=== PATIENT | male | born 1955 | race Caucasian/White ===

== ENCOUNTER 2018-07-27 06:58 | Inpatient (IN) ==
[2018-07-20 16:05] LABS: Basophils # 0.1 10*3/uL (0.0-0.2); Basophils % 1.1 % (0.0-0.8); Eosinophils # 0.1 10*3/uL (0.0-0.87); Eosinophils % 1.9 % (0.00-10.9); Hematocrit 46.7 VOL% (42.0-52.0); Hemoglobin 16.3 GM/DL (14.0-18.0); Immature Granulocytes % 0.4 %; Immature Granulocytes Absolute 0.02 #; Lymphocytes # 1.3 10*3/uL (1.4-4.0); Lymphocytes % 26.7 % (21.2-54.2); Mean Corpuscular HGB Conc 34.9 GM/DL (32-36); Mean Corpuscular Hemoglobin 31 PG (27-34); Mean Corpuscular Volume 88.4 FL (87-102); Mean Platelet Volume 10.6 FL (9.6-12.0); Monocytes # 0.5 10*3/uL (0.11-0.8); Monocytes % 9.7 % (1.7-12.7); Neutrophils # 2.8 10*3/uL (1.4-7.4); Neutrophils % 60.2 % (38.7-73.9); Platelet Count 153 T/CUMM (130-400); Red Blood Count 5.28 MC/CUMM (3.8-5.5); Red Cell Distribution Width 13.1 % (9.3-17.3); White Blood Count 4.7 T/CUMM (4-12)
[2018-07-20 16:28] LABS: Calcium 9.3 MG/DL (8.5-10.1); Osmolality,Calculated 280.3 MOS/KG (273-304); Potassium 4.2 MMOL/L (3.5-5.1)
[2018-07-27] MEDS: LACTATED RINGERS 1,000 ML IV SCH ×4 (07:39→17:01)
[2018-07-27] MEDS ORDERED: PANTOPRAZOLE 40 MG TABLET PO ONE (08:59)
[2018-07-27] MEDS ORDERED: DIAZEPAM 5 MG TABLET PO ONE (08:59)
[2018-07-27] MEDS ORDERED: LIDOCAINE 1%/EPI INJ 20 ML VIAL ONE (09:40)
[2018-07-27] MEDS ORDERED: BUPIVACAINE MPF 0.25% /EPI 30 ML VIAL ONE (09:40)
[2018-07-27] MEDS ORDERED: ROPIVACAINE 0.5% 30 ML VIAL ONE (09:55)
[2018-07-27] MEDS ORDERED: ONDANSETRON 4 MG/2 ML VIAL IV PRN ×2 (12:21→12:50)
[2018-07-27] MEDS ORDERED: GLUCAGON 1 MG VIAL IM PRN (12:23)
[2018-07-27] MEDS ORDERED: DEXTROSE 50% 25 GM/50 ML VIAL IV PRN (12:23)
[2018-07-27] MEDS ORDERED: MEPERIDINE 25 MG/1 ML VIAL ONE (12:50)
[2018-07-27] MEDS ORDERED: HYDROmorphone 2 MG/1 ML VIAL IV PRN (12:50)
[2018-07-27] MEDS ORDERED: MEPERIDINE 25 MG/1 ML VIAL IV PRN (12:50)
[2018-07-27] MEDS ORDERED: hydrALAZINE 20 MG/1 ML VIAL IV ONE (13:03)
[2018-07-27] MEDS ORDERED: PROPOFOL 200 MG/20 ML VIAL IV ONE (13:25)
[2018-07-27] MEDS ORDERED: ROCURONIUM 100 MG/10 ML VIAL IV ONE (13:26)
[2018-07-27] MEDS ORDERED: SEVOFLURANE 1 UNIT/15 MINUTE INH ONE (13:26)
[2018-07-27] MEDS ORDERED: ONDANSETRON 4 MG/2 ML VIAL ONE (13:26)
[2018-07-27] MEDS ORDERED: fentaNYL 100 MCG/2 ML VIAL ONE (13:26)
[2018-07-27] MEDS ORDERED: MIDAZOLAM 2 MG/2 ML VIAL ONE (13:27)
[2018-07-27] MEDS ORDERED: GLYCOPYRROLATE 0.4 MG/2 ML VIAL ONE (13:27)
[2018-07-27] MEDS ORDERED: NEOSTIGMINE 10 MG/10 ML VIAL ONE (13:28)
[2018-07-27] MEDS ORDERED: SODIUM CHLORIDE 0.9% 250 ML IV ONE (13:28)
[2018-07-27] MEDS ORDERED: PHENYLEPHRINE 10 MG/1 ML VIAL IV ONE (13:28)
[2018-07-27] MEDS: HYDROmorphone 2 MG/1 ML VIAL IV PRN ×2 (15:13→21:46)
[2018-07-27 16:40] LABS: Hematocrit 45.8 VOL% (42.0-52.0); Hemoglobin 15.8 GM/DL (14.0-18.0)
[2018-07-27] MEDS: cefOXitin 2,000 MG in SYRINGE 1 EACH IV SCH ×2 (17:25→21:43)
[2018-07-27] MEDS: INSULIN REGULAR 100 UNIT/ML SUBCUT SCH (18:24)
[2018-07-27 20:59] LABS: Hematocrit 45.8 VOL% (42.0-52.0); Hemoglobin 16.2 GM/DL (14.0-18.0)
[2018-07-27] MEDS: ALVIMOPAN 12 MG CAPSULE PO SCH (21:42)
[2018-07-28] MEDS: INSULIN REGULAR 100 UNIT/ML SUBCUT SCH ×4 (02:07→17:42)
[2018-07-28] MEDS: LACTATED RINGERS 1,000 ML IV SCH ×3 (02:09→23:57)
[2018-07-28] MEDS: HYDROmorphone 2 MG/1 ML VIAL IV PRN ×2 (03:22→15:16)
[2018-07-28] MEDS: cefOXitin 2,000 MG in SYRINGE 1 EACH IV SCH (05:24)
[2018-07-28 05:29] LABS: Hematocrit 43.1 VOL% (42.0-52.0); Hemoglobin 15.4 GM/DL (14.0-18.0)
[2018-07-28 05:30] LABS: Basophils % 0.1 % (0.0-0.8); Hematocrit 43.3 VOL% (42.0-52.0); Hemoglobin 15.4 GM/DL (14.0-18.0); Immature Granulocytes % 0.5 %; Immature Granulocytes Absolute 0.05 #; Lymphocytes # 0.6 10*3/uL (1.4-4.0); Lymphocytes % 5.6 % (21.2-54.2); Mean Corpuscular HGB Conc 35.6 GM/DL (32-36); Mean Corpuscular Hemoglobin 31 PG (27-34); Mean Corpuscular Volume 87.3 FL (87-102); Mean Platelet Volume 11.5 FL (9.6-12.0); Monocytes # 0.9 10*3/uL (0.11-0.8); Monocytes % 8.3 % (1.7-12.7); Neutrophils # 9.3 10*3/uL (1.4-7.4); Neutrophils % 85.5 % (38.7-73.9); Platelet Count 139 T/CUMM (130-400); Red Blood Count 4.96 MC/CUMM (3.8-5.5); Red Cell Distribution Width 13.2 % (9.3-17.3); White Blood Count 10.9 T/CUMM (4-12)
[2018-07-28 05:46] LABS: Calcium 8.3 MG/DL (8.5-10.1); Potassium 4.2 MMOL/L (3.5-5.1)
[2018-07-28] MEDS: PANTOPRAZOLE 40 MG TABLET PO SCH (08:45)
[2018-07-28] MEDS: amLODIPine 10 MG TABLET PO SCH (08:45)
[2018-07-28] MEDS: ALVIMOPAN 12 MG CAPSULE PO SCH ×2 (08:45→21:15)
[2018-07-28] MEDS: ENOXAPARIN 40 MG/0.4 ML SYRINGE SUBCUT SCH (11:39)
[2018-07-28] MEDS: metFORMIN 500 MG TABLET PO SCH (17:39)
[2018-07-29] MEDS: INSULIN REGULAR 100 UNIT/ML SUBCUT SCH ×4 (00:17→17:34)
[2018-07-29] MEDS: ENOXAPARIN 40 MG/0.4 ML SYRINGE SUBCUT SCH (08:34)
[2018-07-29] MEDS: metFORMIN 500 MG TABLET PO SCH ×2 (08:40→16:32)
[2018-07-29] MEDS: amLODIPine 10 MG TABLET PO SCH (08:40)
[2018-07-29] MEDS: PANTOPRAZOLE 40 MG TABLET PO SCH (08:40)
[2018-07-29] MEDS: ALVIMOPAN 12 MG CAPSULE PO SCH ×2 (08:41→20:41)
[2018-07-29] MEDS: sitaGLIPtin 100 MG TABLET PO SCH (08:41)
[2018-07-29] MEDS: LACTATED RINGERS 1,000 ML IV SCH (12:58)
[2018-07-29] MEDS ORDERED: KETOROLAC 15 MG/1 ML VIAL IV PRN (21:25)
[2018-07-30] MEDS: INSULIN REGULAR 100 UNIT/ML SUBCUT SCH ×2 (00:33→06:15)
[2018-07-30 06:19] LABS: Basophils # 0.1 10*3/uL (0.0-0.2); Basophils % 0.7 % (0.0-0.8); Eosinophils # 0.1 10*3/uL (0.0-0.87); Eosinophils % 1.9 % (0.00-10.9); Hematocrit 43.1 VOL% (42.0-52.0); Immature Granulocytes % 0.5 %; Immature Granulocytes Absolute 0.04 #; Lymphocytes % 14.2 % (21.2-54.2); Mean Corpuscular HGB Conc 34.8 GM/DL (32-36); Mean Corpuscular Hemoglobin 31 PG (27-34); Mean Corpuscular Volume 89.2 FL (87-102); Mean Platelet Volume 11.8 FL (9.6-12.0); Monocytes # 0.8 10*3/uL (0.11-0.8); Monocytes % 10.8 % (1.7-12.7); Neutrophils # 5.3 10*3/uL (1.4-7.4); Neutrophils % 71.9 % (38.7-73.9); Platelet Count 165 T/CUMM (130-400); Red Blood Count 4.83 MC/CUMM (3.8-5.5); Red Cell Distribution Width 13.5 % (9.3-17.3); White Blood Count 7.3 T/CUMM (4-12)
[2018-07-30 06:46] LABS: Osmolality,Calculated 279.5 MOS/KG (273-304); Potassium 3.6 MMOL/L (3.5-5.1)
[2018-07-30 07:42] VITALS: BP 148/84
[2018-07-30] MEDS: metFORMIN 500 MG TABLET PO SCH (09:02)
[2018-07-30] MEDS: PANTOPRAZOLE 40 MG TABLET PO SCH (09:03)
[2018-07-30] MEDS: ALVIMOPAN 12 MG CAPSULE PO SCH (09:03)
[2018-07-30] MEDS: amLODIPine 10 MG TABLET PO SCH (09:03)
[2018-07-30] MEDS: sitaGLIPtin 100 MG TABLET PO SCH (09:03)
[2018-07-30] MEDS: ENOXAPARIN 40 MG/0.4 ML SYRINGE SUBCUT SCH (09:03)
== END 2018-07-30 10:40 | disposition home or self-care (01) | DRG 331 ==
LOC: N.OR 06:58 → N.SDSINP 07:02 → N.2E 13:46
PROVIDERS: ADMIT Surgery; ATTEND Surgery